=== PATIENT | male | born 1960 | race Two or more races ===

== ENCOUNTER 2022-04-07 10:30 | Emergency (ER) | payer BC ==
[~2022-04-07] VITALS: Ht 177.8 cm; Wt 99.0 kg
[2022-04-07 11:20] VITALS: BP 144/88
[2022-04-07 11:37] LABS: HEMATOCRIT. 42.9 % (42.0-52.0); HEMOGLOBIN. 14.7 g/dL (14.0-18.0); MEAN CORPUSCULAR HEMOGLOBIN 32.9 pg (28.0-32.0); MEAN CORPUSCULAR VOLUME 95.9 fL (80.0-94.0); MEAN PLATELET VOLUME 9.1 fl (7.4-10.4); PLATELET 174 x1000/uL (130-400); RED BLOOD CELL COUNT 4.48 mill/uL (4.7-6.1); RED CELL DISTRIBUTION WIDTH 15.4 % (11.6-14.6)
[2022-04-07 11:47] LABS: CHLORIDE 100 mEq/L (98-107)
[2022-04-07 11:58] LABS: ETHANOL BLOOD 314 mg/dL
[2022-04-07 12:33] LABS: PLATELET ESTIMATE NORMAL
== END 2022-04-07 13:13 | disposition left against medical advice (07) ==
LOC: ER 10:30
DX: F10.129 Alcohol abuse with intoxication, unspecified (principal); Y90.8 Blood alcohol level of 240 mg/100 ml or more; S30.1XXA Contusion of abdominal wall, initial encounter; K57.90 Diverticulosis of intestine, part unspecified, without perforation or abscess without bleeding; V47.5XXA Car driver injured in collision with fixed or stationary object in traffic accident, initial encounter; Y93.89 Activity, other specified; Y92.411 Interstate highway as the place of occurrence of the external cause
CPT/HCPCS: 36415; 71045; 74176; 80053; 80320; 82962; 85025; 93005; 99285; G0480